=== PATIENT | female | born 1990 | race Two or more races ===

== ENCOUNTER 2025-03-14 07:12 | Outpatient (CLI) | payer OTHER | END 2025-03-14 07:25 | disposition home or self-care (01) | LOC: PRENATAL 07:12 | PROVIDERS: ATTEND Obstetrics & Gynecology Maternal & Fetal Medicine | DX: O44.00 Complete placenta previa NOS or without hemorrhage, unspecified trimester (principal); O09.529 Supervision of elderly multigravida, unspecified trimester; Z3A.20 20 weeks gestation of pregnancy ==